=== PATIENT | female | born 1995 | race Caucasian/White ===

== ENCOUNTER 2016-12-17 05:17 | Observation (INO) | payer OTHER ==
[~2016-12-17] VITALS: Ht 157.5 cm; Wt 110.0 kg
[~2016-12-17 05:17] MED LIST: DOCU1CAP39 PO; MAGN400S PO; WALKER WHEELS/F1 MIS
[2016-12-17] MEDS ORDERED: CHLORHEXIDINE GLUCONATE 4% SOLN 120 ML BTL TOPICAL SCH (05:45)
[2016-12-17] MEDS ORDERED: ceFAZolin 2 GM PREMIX 50 ML IV SCH (05:45)
[2016-12-17] MEDS ORDERED: VANCOMYCIN 1000 MG/NS 250 ML (for <70 kg) IV SCH ×2 (05:45)
[2016-12-17] MEDS ORDERED: LACTATED RINGER'S 1000 ML IV PRN (07:00)
[2016-12-17] MEDS ORDERED: INSULIN HUMAN REGULAR 1,000 UNITS/10 ML VIAL SQ PRN (07:00)
[2016-12-17] MEDS ORDERED: CHLORHEXIDINE GLUCONATE 2 % 1 PACK (2 CLOTHS) TOPICAL PRN (07:00)
[2016-12-17] MEDS ORDERED: POVIDONE IODINE 5% (ANTISEPSIS KIT) 4 APPLICATIONS EACH NARE PRN (07:00)
[2016-12-17] MEDS ORDERED: METOPROLOL TARTRATE 25 MG TAB PO PRN (07:00)
[2016-12-17] MEDS ORDERED: SODIUM CHLORID 0.9% 500 ML IV PRN (07:00)
[2016-12-17] MEDS ORDERED: OXYC1TAB35 PO (07:16)
[2016-12-17] MEDS ORDERED: VANCOMYCIN HCL 1000 MG VIAL ONE (07:40)
[2016-12-17] MEDS ORDERED: GENTAMICIN SULFATE 80 MG/2 ML VIAL ONE (07:42)
[2016-12-17] MEDS ORDERED: SODIUM CHLOR 0.9% 250 ML INJ 250 ML ONE (07:42)
[2016-12-17] MEDS ORDERED: ACETAMINOPHEN 1000 MG/100 ML 100 ML IV ONE (08:05)
[2016-12-17] MEDS ORDERED: MIDAZOLAM HCL 2 MG/2 ML VIAL ONE (08:07)
[2016-12-17] MEDS ORDERED: DEXAMETHASONE SOD PHOS 4 MG/ML VIAL ONE (08:07)
[2016-12-17] MEDS ORDERED: FAMOTIDINE 20 MG/2 ML VIAL ONE (08:07)
[2016-12-17] MEDS ORDERED: BACITRACIN OPHT OINT 3.5 GM TUBO ONE (10:06)
[2016-12-17] MEDS ORDERED: BACITRACIN TOP OINT 15 GM TUBE ONE (10:06)
[2016-12-17] MEDS ORDERED: ONDANSETRON HCL 4 MG/2 ML VIAL IVP PRN (10:15)
[2016-12-17] MEDS ORDERED: Post-op Orders (for Pharmacy) MISC XX ONE (10:15)
[2016-12-17] MEDS ORDERED: MORPHINE SULFATE 4 MG/ML INJ IV PUSH PRN (10:15)
--- NOTE | 2016-12-17 10:22 | PD.OP ---
cc: Angel Beatty MD Operative Report Date of Surgery: Dec 17, 2016 Preoperative Diagnosis: Left foot open wound, left ankle instability with recurrent subluxation, left fibula fracture with syndesmosis disruption Postoperative Diagnosis: Procedure: Debridement of left foot skin, subcutaneous tissue and fascia. Revision open reduction internal fixation left ankle syndesmosis Left ankle reduction and pinning Surgeon: Angel Beatty Software Tools Developer(s): VANESA Hernandez PA-C The surgical procedure was assisted by my physician grants assistant. My P.A. presence was necessary throughout this case for the manipulation and positioning of the surgical extremity. My P.A. was assisting me throughout the duration of this procedure. The skill set of a physician grants assistant was medically necessary to complete this procedure. During the surgical case the instructor adjunct surgical technician was working at the back table and the physician grants assistant was directly assisting me. Operation and Findings: Patient was seen and evaluated preoperatively and found to have recurrent subluxation of her ankle. She is also found to have a large area of wound necrosis over the lateral foot. She has a history of a displaced left ankle fracture with previous open reduction internal fixation of fibula and syndesmosis. Informed consent was obtained after a detailed discussion of risk and benefits of surgery. The operative site was marked. Patient was brought to the OR, placed on the OR table, and given IV sedation and general endotracheal anesthesia. IV antibiotics were given preoperatively. A timeout procedure was performed. The left leg was prepped with alcohol followed by Hibiclens and draped in the usual sterile fashion. Procedure began with irrigation and debridement of the foot. Full-thickness skin was excised. Skin subcutaneous tissue and fascia were sharply debrided with scalpel and rongeur. Curettes were also used to debride soft tissue. Cultures were obtained from soft tissue. Wound was now thoroughly irrigated with sterile saline. Overall the wound was clean with good granulation tissue Next attention was turned towards the distal fibula and syndesmosis. A 3-inch incision was made over the distal fibula through the previous scar. The subcutaneous tissue was dissected with Bovie. The plate and screws were identified. The ankle was examined under fluoroscopy. Patient had some anterior subluxation of the talus relative to the tibia. When the ankle was relaxed she also had a valgus laxity of the ankle. The syndesmotic screws were now removed. The talus was reduced back to the tibia. New syndesmotic screws were now placed. The syndesmosis was held in a reduced position. 2 Synthes 4.0 cortical screws were placed through the fibula into the tibia. Care was taken to maintain reduction of the tibiotalar joint and syndesmosis. The syndesmosis was stressed and found to be stable. The talus was in a well reduced position relative to the tibia. Next attention was turned towards the ankle stability. Patient still had significant medial laxity of her ankle. When the ankle was relaxed there was significant valgus angulation of the tibiotalar joint. The talus was mainly reduced up to the tibia. A 3 mm Steinmann pin was now placed through the plantar aspect of the foot. The pin was advanced through the calcaneus, through the talus, and into the tibia. This pin was found to hold the ankle and excellent alignment with anatomic reduction of the tibiotalar joint. Incisions were thoroughly irrigated. The subcutaneous tissue was closed with 3- 0 PDS and the skin was closed with 3-0 nylon. Sterile dressings were applied. The foot wound was covered with bacitracin and Xeroform. She is placed into a well molded well-padded splint. The patient was transferred to Recovery in stable condition. Angel Beatty MD Dec 17, 2016 10:22
[2016-12-17] MEDS ORDERED: DO NOT ADM ANY ANTICOAGULANT DRUGS PRN (10:33)
[2016-12-17] MEDS ORDERED: *morphine SULFATE 8 MG/ML PERIprocedure ONLY ONE ×3 (10:47→11:25)
[2016-12-17] MEDS ORDERED: PROPOFOL 200 MG/20 ML AMP IV ONE (12:00)
[2016-12-17] MEDS ORDERED: LIDOCAINE HCL 1% PF 5 ML AMPULE OTHER ONE (12:00)
[2016-12-17 13:00] VITALS: BP 121/53; PULSE 93; RESP 18; TEMP 95.7; O2SAT 95
[2016-12-17] MEDS: ACETAMINOPHEN/HYDROcodone 325 MG/10 MG TAB PO PRN ×3 (13:07→22:34)
--- NOTE | 2016-12-17 13:40 | RADRPT ---
EXAM DATE/TIME: 12/17/2016 10:04 [facility] COMPARISON: FLUOROSCOPY PORTABLE UP TO 1HR, December 17, 2016, 0:00. INDICATIONS : Revision of left ankle hardware. MEDICAL HISTORY : Unobtainable. SURGICAL HISTORY : Unobtainable. ENCOUNTER: Subsequent ACUITY: 2 months PAIN SCORE: Non-responsive. LOCATION: Left ankle. FINDINGS: Intraoperative examination demonstrates a plate across the distal ulna with screws across the tib-fib joint and an external fixator in place. There has been removal of old hardware. Alignment of the ank le mortise is excellent. CONCLUSION: Intraoperative exam demonstrates excellent alignment of the ankle mortise. The hardware appears well- positioned. Albert Rivera MD on December 17, 2016 at 13:33 Board Certified Radiologist. This report was verified electronically.
[2016-12-17 16:00] VITALS: BP 111/57; PULSE 67; RESP 18; TEMP 95.8; O2SAT 97
[2016-12-17] MEDS: ceFAZolin 2 GM PREMIX 50 ML IV SCH (16:16)
[2016-12-17 16:57] VITALS: O2SAT 95
[2016-12-17 20:10] VITALS: BP 116/57; PULSE 66; RESP 16; TEMP 96.8; O2SAT 98
[2016-12-17] MEDS: VANCOMYCIN INJ 1,000 MG in SODIUM CHLOR 0.9% 250 ML INJ 250 ML IV SCH (22:35)
[2016-12-18 00:32] VITALS: BP 97/55; PULSE 95; RESP 16; TEMP 96.7; O2SAT 98
[2016-12-18] MEDS: ceFAZolin 2 GM PREMIX 50 ML IV SCH ×2 (00:51→07:58)
[2016-12-18 04:50] VITALS: BP 99/48; PULSE 55; RESP 17; TEMP 96.3; O2SAT 100
[2016-12-18] MEDS ORDERED: OXYC1TAB35 PO (06:37)
--- NOTE | 2016-12-18 06:46 | PD.ORT.PN ---
Subjective Subjective Remarks Pain controlled. No new complaints Objective Vitals Vital Signs Date Time Temp Pulse Resp B/P (MAP) Pulse Ox O2 Delivery O2 Flow Rate FiO2 12/18/16 04:50 96.3 55 17 99/48 (65) 100 12/18/16 02:15 Room Air 12/18/16 00:32 96.7 95 16 97/55 (69) 98 12/17/16 23:21 17 12/17/16 20:10 96.8 66 16 116/57 (76) 98 12/17/16 16:57 95 21 12/17/16 16:00 95.8 67 18 111/57 (75) 97 12/17/16 13:00 95.7 93 18 121/53 (75) 95 12/17/16 12:55 Room Air 12/17/16 12:30 98.1 85 14 125/68 (87) 99 Room Air 12/17/16 12:00 84 14 118/68 (85) 97 Room Air 12/17/16 11:30 81 14 117/63 (81) 99 Nasal Cannula 2 12/17/16 11:15 74 14 120/63 (82) 98 Nasal Cannula 2 12/17/16 11:00 86 14 126/73 (90) 98 Nasal Cannula 2 12/17/16 10:45 89 14 129/62 (84) 98 Nasal Cannula 2 12/17/16 10:34 97.5 96 14 143/75 (97) 100 Nasal Cannula 4 12/17/16 07:21 98.0 68 18 120/73 (89) 99 I/O 12/17/16 12/17/16 12/17/16 12/18/16 12/18/16 12/18/16 07:00 15:00 23:00 07:00 15:00 23:00 Intake Total 1480 ml 480 ml 300 ml Output Total 25 ml Balance 1455 ml 480 ml 300 ml Intake Oral 480 ml 480 ml IV Total 300 ml Other 1000 ml Output Estimated Blood Loss 25 ml # Voids 2 2 # Bowel Movements 0 0 Imaging Left lower extremity: Clean dry dressings intact. Intact sensation in all toes. Good capillary refills Assessment & Plan Assessment and Plan Irrigation debridement with revision of ankle ORIF and percutaneous pin fixation of tibiotalar joint POD 1 Maintain splint Nonweightbearing left lower extremity Elevation Discharge appointment next week for x-rays and dressing change Discharge to home today Carrillo Donaldson Jr. Dec 18, 2016 06:46
--- NOTE | 2016-12-18 07:31 | HHI.DS ---
Discharge Summary Admission Date Dec 17, 2016 at 05:17 Discharge Date: Dec 18, 2016 Admitting Diagnosis Left ankle fracture subluxation and traumatic wound Diagnosis: (1) Fracture dislocation of left ankle Diagnosis: Principal ICD Codes: S82.892A - Other fracture of left lower leg, initial encounter for closed fracture Status: Acute Hospital Course Patient admitted from outpatient basis for revision surgery and irrigation and debridement of the left ankle. She tolerated procedure well was admitted to [address] [place] [id number]. She was out of bed on same day of surgery and pain was well-controlled. She is hemodynamically stable and fit for discharge home today. She'll remain nonweightbearing and maintain her splint at all times. She'll keep it clean and dry. She'll follow-up in the office in 1-[address] Beatty or his PA Pt Condition on Discharge: Good Discharge Disposition: Discharge Home Discharge Instructions Diet Instructions: As Tolerated, No Restrictions Activities You Can Perform: Non Weight Bearing Follow up Referrals: Orthopedics - 1 Week @ [facility] with Angel Beatty MD Continued Medications: Oxycodone-Acetaminophen (Oxycodone-Acetaminophen) 7.5-325 mg Tab 1 TAB PO Q6H PRN for PAIN, #60 TAB 0 Refills (This prescription has been renewed ) Josh Calvo Dec 18, 2016 07:31
[2016-12-18] MEDS: ACETAMINOPHEN/HYDROcodone 325 MG/10 MG TAB PO PRN ×3 (07:58→16:09)
[2016-12-18 08:00] VITALS: BP 119/65; PULSE 77; RESP 18; TEMP 97.9; O2SAT 97
[2016-12-18 09:57] VITALS: O2SAT 96
[2016-12-18] MEDS: VANCOMYCIN INJ 1,000 MG in SODIUM CHLOR 0.9% 250 ML INJ 250 ML IV SCH (10:00)
[2016-12-18 12:00] VITALS: BP 100/52; PULSE 55; RESP 18; TEMP 97.5; O2SAT 98
== END 2016-12-18 17:26 | disposition home or self-care (01) ==
LOC: INTOOBSV 05:17 → HSDI 05:17 → N06B 12:56
PROVIDERS: ADMIT Orthopaedic Surgery Orthopaedic Trauma; ATTEND Orthopaedic Surgery Orthopaedic Trauma
DX: S91.302A Unspecified open wound, left foot, initial encounter (principal); S82.402A Unspecified fracture of shaft of left fibula, initial encounter for closed fracture; M25.372 Other instability, left ankle; B96.89 Other specified bacterial agents as the cause of diseases classified elsewhere
CPT/HCPCS: 01480; 11011; 27829; 73600; 76000; 87015; 87070; 87077; 87102; 87116; 87186; 87205; 87206; 94150; 97110; 97116; 97162; C1713; G8987; G8988; J0131; J0690; J1100; J1580; J2250; J2270; J3010; J3370; J7050; J7120; 96365; 96376; G0378